=== PATIENT | female | born 2000 | race Caucasian/White ===

== ENCOUNTER 2022-04-16 16:45 | Emergency (ER) | payer OTHER ==
[~2022-04-16] VITALS: Ht 167.6 cm; Wt 112.9 kg
[2022-04-16 16:49] VITALS: BP 146/92
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
== END 2022-04-16 17:30 | disposition home or self-care (01) ==
LOC: MED 16:45
DX: S09.90XA Unspecified injury of head, initial encounter (principal); M25.531 Pain in right wrist; M54.2 Cervicalgia; M25.512 Pain in left shoulder; V49.49XA Driver injured in collision with other motor vehicles in traffic accident, initial encounter; Y93.89 Activity, other specified; Y92.410 Unspecified street and highway as the place of occurrence of the external cause; Y99.8 Other external cause status
CPT/HCPCS: 99282